=== PATIENT | male | born 1935 | race Caucasian/White ===

== ENCOUNTER 2019-02-08 15:39 | Observation (INO) ==
[2019-02-08 16:21] LABS: Basophils % 0.5 %; Eosinophils % 0.6 %; Hematocrit 33.9 % (37.5-50.1); Hemoglobin 11.2 g/dL (12.9-16.9); Immature Granulocytes % 0.3 % (0-4); Lymphocytes # 0.8 K/mcL (0.6-4.6); Mean Corpuscular Hemoglobin 32.1 pg (28.0-33.3); Mean Corpuscular Volume 97.1 fL (83.0-100.0); Monocytes # 0.5 K/mcL (0.0-1.3); Monocytes % 7.2 %; Platelet Count 186 K/mcL (140-400); Red Blood Count 3.49 M/mcL (4.19-5.50); Red Cell Distribution Width 14.6 % (11.5-14.5); Segmented Neutrophils % 79.4 %; White Blood Count 6.3 K/mcL (4.3-11.1)
[2019-02-08 16:38] LABS: Blood Urea Nitrogen 29 mg/dL (8-23); Calcium 9.7 mg/dL (8.6-10.3); Carbon Dioxide 32 mEq/L (23-29); Chloride 95 mEq/L (98-107); Glucose 116 mg/dL (70-105); Osmolality,Calculated 291 (280-300); Potassium 3.9 mEq/L (3.5-5.1); Sodium 137 mEq/L (136-145); Troponin I < 0.03 ng/mL (< 0.04)
[2019-02-08 16:39] LABS: BUN/Creatinine Ratio 24 (6-26); eGFR For African Americans > 60 (> 60); eGFR For Non-African Americans 57 (> 60)
[2019-02-08] MEDS ORDERED: Furosemide 40 MG/4 ML VIAL IVP ONE (16:49)
[2019-02-08] MEDS ORDERED: Naloxone 0.4 MG/ML INJ IVP PRN (18:12)
[2019-02-09] MEDS ORDERED: Ipratropium/Albuterol Neb 3 ML IH PRN (00:14)
[2019-02-09 05:55] LABS: Hematocrit 36.7 % (37.5-50.1); Hemoglobin 12.2 g/dL (12.9-16.9); Mean Corpuscular HGB Conc 33.2 g/dL (31.6-35.5); Mean Corpuscular Hemoglobin 32.2 pg (28.0-33.3); Mean Corpuscular Volume 96.8 fL (83.0-100.0); Mean Platelet Volume 10.2 fL (9.4-12.4); Platelet Count 180 K/mcL (140-400); Red Blood Count 3.79 M/mcL (4.19-5.50); Red Cell Distribution Width 14.7 % (11.5-14.5); White Blood Count 5.1 K/mcL (4.3-11.1)
[2019-02-09 06:15] LABS: Troponin I < 0.03 ng/mL (< 0.04)
[2019-02-09 06:22] LABS: BUN/Creatinine Ratio 25 (6-26); Blood Urea Nitrogen 29 mg/dL (8-23); Calcium 9.5 mg/dL (8.6-10.3); Carbon Dioxide 32 mEq/L (23-29); Chloride 96 mEq/L (98-107); Glucose 116 mg/dL (70-105); Osmolality,Calculated 297 (280-300); Potassium 3.2 mEq/L (3.5-5.1); Sodium 140 mEq/L (136-145); eGFR For African Americans > 60 (> 60); eGFR For Non-African Americans > 60 (> 60)
[2019-02-09] MEDS: Furosemide 40 MG/4 ML VIAL IVP SCH ×2 (07:53→17:19)
[2019-02-09] MEDS: Finasteride 5 MG TABLET PO SCH (07:53)
[2019-02-09] MEDS: Apixaban 5 MG TABLET PO SCH ×2 (07:53→20:54)
[2019-02-09] MEDS: Fluticasone Propionate Nasal 50 MCG/SPRAY BOTTLE NS SCH (09:22)
[2019-02-09] MEDS: Tiotropium 18 MCG inhalation IH SCH (10:27)
[2019-02-09] MEDS: Budesonide/Formoterol 160/4.5 1 PUFF INH IH SCH ×2 (10:27→19:37)
[2019-02-09] MEDS: Loratadine 10 MG TABLET PO SCH (12:47)
[2019-02-09] MEDS: Latanoprost 2.5 ML BOTTLE LEFT EYE SCH (21:22)
[2019-02-10 02:53] LABS: Hematocrit 40.7 % (37.5-50.1); Hemoglobin 13.4 g/dL (12.9-16.9); Mean Corpuscular HGB Conc 32.9 g/dL (31.6-35.5); Mean Corpuscular Hemoglobin 31.8 pg (28.0-33.3); Mean Corpuscular Volume 96.4 fL (83.0-100.0); Platelet Count 191 K/mcL (140-400); Red Blood Count 4.22 M/mcL (4.19-5.50); Red Cell Distribution Width 14.8 % (11.5-14.5); White Blood Count 5.9 K/mcL (4.3-11.1)
[2019-02-10 03:10] LABS: BUN/Creatinine Ratio 31 (6-26); Blood Urea Nitrogen 35 mg/dL (8-23); Calcium 9.5 mg/dL (8.6-10.3); Carbon Dioxide 32 mEq/L (23-29); Chloride 98 mEq/L (98-107); Glucose 115 mg/dL (70-105); Osmolality,Calculated 299 (280-300); Potassium 3.1 mEq/L (3.5-5.1); Sodium 140 mEq/L (136-145); eGFR For African Americans > 60 (> 60); eGFR For Non-African Americans > 60 (> 60)
[2019-02-10] MEDS: Budesonide/Formoterol 160/4.5 1 PUFF INH IH SCH ×2 (08:00→19:34)
[2019-02-10] MEDS: Tiotropium 18 MCG inhalation IH SCH (08:00)
[2019-02-10] MEDS: Apixaban 5 MG TABLET PO SCH ×2 (08:30→20:51)
[2019-02-10] MEDS: Finasteride 5 MG TABLET PO SCH (08:30)
[2019-02-10] MEDS: Furosemide 40 MG/4 ML VIAL IVP SCH (08:30)
[2019-02-10] MEDS: Fluticasone Propionate Nasal 50 MCG/SPRAY BOTTLE NS SCH (08:35)
[2019-02-10] MEDS: Loratadine 10 MG TABLET PO SCH (12:31)
[2019-02-10] MEDS: Furosemide 40 MG TABLET PO SCH (17:10)
[2019-02-10] MEDS: Latanoprost 2.5 ML BOTTLE LEFT EYE SCH (20:51)
[2019-02-11 02:14] LABS: Hematocrit 40.1 % (37.5-50.1); Hemoglobin 13.5 g/dL (12.9-16.9); Mean Corpuscular HGB Conc 33.7 g/dL (31.6-35.5); Mean Corpuscular Hemoglobin 32.1 pg (28.0-33.3); Mean Corpuscular Volume 95.5 fL (83.0-100.0); Mean Platelet Volume 9.7 fL (9.4-12.4); Platelet Count 191 K/mcL (140-400); Red Cell Distribution Width 14.7 % (11.5-14.5); White Blood Count 6.3 K/mcL (4.3-11.1)
[2019-02-11 02:39] LABS: BUN/Creatinine Ratio 29 (6-26); Blood Urea Nitrogen 38 mg/dL (8-23); Calcium 9.2 mg/dL (8.6-10.3); Carbon Dioxide 30 mEq/L (23-29); Chloride 99 mEq/L (98-107); Glucose 119 mg/dL (70-105); Osmolality,Calculated 302 (280-300); Potassium 3.6 mEq/L (3.5-5.1); Sodium 141 mEq/L (136-145); eGFR For African Americans > 60 (> 60); eGFR For Non-African Americans 53 (> 60)
[2019-02-11] MEDS: Fluticasone Propionate Nasal 50 MCG/SPRAY BOTTLE NS SCH (08:52)
[2019-02-11] MEDS: Furosemide 40 MG TABLET PO SCH (08:53)
[2019-02-11] MEDS: Finasteride 5 MG TABLET PO SCH (08:53)
[2019-02-11] MEDS: Apixaban 5 MG TABLET PO SCH (08:53)
[2019-02-11] MEDS: Loratadine 10 MG TABLET PO SCH (10:48)
[2019-02-11] MEDS: Budesonide/Formoterol 160/4.5 1 PUFF INH IH SCH (11:01)
[2019-02-11] MEDS: Tiotropium 18 MCG inhalation IH SCH (11:01)
[2019-02-11 19:12] VITALS: BP 148/75
== END 2019-02-11 11:49 | disposition home or self-care (01) ==
LOC: 3BNU 15:39 → EMEROOARM 15:39 → 3BNU 20:02
PROVIDERS: ADMIT Family Medicine; ATTEND Family Medicine

== ENCOUNTER 2019-04-16 10:00 | Observation (INO) ==
[2019-04-16] MEDS ORDERED: Ipratropium/Albuterol Neb 3 ML IH PRN (12:05)
[2019-04-16] MEDS ORDERED: *HR* OxyCODONE/APAP 5/325 TABLET PO PRN (12:05)
[2019-04-16 14:41] LABS: BUN/Creatinine Ratio 34 (6-26); Blood Urea Nitrogen 44 mg/dL (8-23); Calcium 9.7 mg/dL (8.6-10.3); Carbon Dioxide 31 mEq/L (23-29); Chloride 100 mEq/L (98-107); Glucose 122 mg/dL (70-105); Osmolality,Calculated 298 (280-300); Potassium 3.5 mEq/L (3.5-5.1); Sodium 138 mEq/L (136-145); eGFR For African Americans > 60 (> 60); eGFR For Non-African Americans 53 (> 60)
[2019-04-16] MEDS: Budesonide/Formoterol 160/4.5 1 PUFF INH IH SCH (19:57)
[2019-04-16] MEDS: Latanoprost 2.5 ML BOTTLE BOTH EYES SCH (21:17)
[2019-04-16] MEDS: atenoloL 50 MG TABLET PO SCH (21:18)
[2019-04-16] MEDS: Apixaban 5 MG TABLET PO SCH (21:18)
[2019-04-17] MEDS: Budesonide/Formoterol 160/4.5 1 PUFF INH IH SCH ×2 (07:37→20:37)
[2019-04-17] MEDS: Tiotropium 18 MCG inhalation IH SCH (07:38)
[2019-04-17] MEDS ORDERED: amLODIPine 5 MG TABLET PO SCH (08:00)
[2019-04-17] MEDS: predniSONE 20 MG TABLET PO SCH (09:48)
[2019-04-17] MEDS: atenoloL 50 MG TABLET PO SCH ×2 (09:48→20:15)
[2019-04-17] MEDS: Multivit/Ca/Min/Fe/FA 1 TAB TABLET PO SCH (09:48)
[2019-04-17] MEDS: Apixaban 5 MG TABLET PO SCH ×2 (09:48→20:14)
[2019-04-17] MEDS: amLODIPine 5 MG TABLET PO SCH (09:49)
[2019-04-17] MEDS: Fluticasone Propionate Nasal 50 MCG/SPRAY BOTTLE NS SCH (09:50)
[2019-04-17] MEDS: Finasteride 5 MG TABLET PO SCH (12:03)
[2019-04-17] MEDS: allopurinoL 300 MG TABLET PO SCH (12:03)
[2019-04-17] MEDS: Loratadine 10 MG TABLET PO SCH (12:03)
[2019-04-17] MEDS: Latanoprost 2.5 ML BOTTLE BOTH EYES SCH (20:14)
[2019-04-18] MEDS: amLODIPine 5 MG TABLET PO SCH (07:11)
[2019-04-18] MEDS: Multivit/Ca/Min/Fe/FA 1 TAB TABLET PO SCH (07:11)
[2019-04-18] MEDS: predniSONE 20 MG TABLET PO SCH (07:11)
[2019-04-18] MEDS: atenoloL 50 MG TABLET PO SCH (07:12)
[2019-04-18] MEDS: Fluticasone Propionate Nasal 50 MCG/SPRAY BOTTLE NS SCH (07:12)
[2019-04-18] MEDS: Apixaban 5 MG TABLET PO SCH (07:12)
[2019-04-18] MEDS: Budesonide/Formoterol 160/4.5 1 PUFF INH IH SCH (07:44)
[2019-04-18] MEDS: Tiotropium 18 MCG inhalation IH SCH (07:44)
[2019-04-18] MEDS ORDERED: *HR* Midazolam HCl 2 MG/2 ML VIAL IVP PRN (09:49)
[2019-04-18] MEDS ORDERED: 0.9 % Sodium Chloride 500 ML IVC ONE (09:49)
[2019-04-18] MEDS ORDERED: *HR* FentaNYL (PF) 100 MCG/2 ML VIAL IVP PRN (09:49)
[2019-04-18] MEDS ORDERED: *HR* Midazolam HCl 5 MG/5 ML VIAL IVP ONE ×2 (10:06)
[2019-04-18] MEDS: Loratadine 10 MG TABLET PO SCH (11:16)
[2019-04-18] MEDS: Finasteride 5 MG TABLET PO SCH (11:16)
[2019-04-18] MEDS: allopurinoL 300 MG TABLET PO SCH (11:16)
[2019-04-18 11:35] VITALS: BP 121/62
== END 2019-04-18 15:00 | disposition home or self-care (01) ==
LOC: 2ANU
PROVIDERS: ADMIT Internal Medicine Clinical Cardiac Electrophysiology; ATTEND Internal Medicine Clinical Cardiac Electrophysiology